=== PATIENT | male | born 1935 | race Caucasian/White ===

== ENCOUNTER 2025-05-12 08:27 | Day surgery (SDC) | payer MEDICARE ==
[2025-05-12] VITALS (10 sets, daily range): BP systolic 116–165; BP diastolic 56–78; PULSE 51–72; RESP 16–18; TEMP 97–97.9
[~2025-05-12] VITALS: Ht 180.3 cm; Wt 86.2 kg
[2025-05-12] MEDS ORDERED: AUD NEB (10:01)
[2025-05-12] MEDS ORDERED: FLUT1BLS15 IH (10:01)
[2025-05-12] MEDS ORDERED: VITAD50000 PO (10:01)
[2025-05-12] MEDS ORDERED: VITA1CAP85 PO (10:01)
[2025-05-12] MEDS ORDERED: MAGN400C PO (10:05)
[2025-05-12] MEDS ORDERED: OLME40TA18 PO (10:05)
[2025-05-12] MEDS ORDERED: GLUCOSAMINE CHO PO (10:05)
[2025-05-12] MEDS ORDERED: OXYB15TA19 PO (10:05)
[2025-05-12] MEDS ORDERED: ICAP PO (10:05)
[2025-05-12] MEDS ORDERED: MULT-1258 PO (10:05)
[2025-05-12] MEDS ORDERED: PANT40TA54 PO (10:05)
[2025-05-12] MEDS ORDERED: ATOR10 PO (10:07)
[2025-05-12] MEDS: 0.9%NACL 1000ML 1,000 ML IV ONE (10:07)
== END 2025-05-12 12:05 | disposition home or self-care (01) ==
LOC: ENDO 08:27 → DAH 08:27 → ENDO 12:05
PROVIDERS: ATTEND Internal Medicine Gastroenterology
DX: R13.10 Dysphagia, unspecified (principal); K31.89 Other diseases of stomach and duodenum; K22.89 Other specified disease of esophagus; K44.9 Diaphragmatic hernia without obstruction or gangrene; K29.70 Gastritis, unspecified, without bleeding; R10.10 Upper abdominal pain, unspecified; R12 Heartburn; K21.9 Gastro-esophageal reflux disease without esophagitis; I10 Essential (primary) hypertension; E78.2 Mixed hyperlipidemia; Z79.899 Other long term (current) drug therapy
CPT/HCPCS: 43239; J7030; J2704; A4620; A4215; J0169; J3490